=== PATIENT | male | born 1935 | race Caucasian/White ===

== ENCOUNTER 2017-01-12 03:36 | Inpatient (IN) | payer OTHER ==
[~2017-01-12] VITALS: Ht 167.6 cm; Wt 81.2 kg
[2017-01-12] VITALS (8 sets, daily range): BP systolic 105–146; BP diastolic 39–73
--- NOTE | ~2017-01-12 | EKG ---
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 : 1935 Requested By: Torsten Birch Order Number: [id number] MD: August Clarke Measurements Intervals [place] Rate: 158 P: DE: QRS: -30 QRSD: 95 T: 122 QT: 264 QTc: 428 Interpretive Statements Atrial fibrillation with rapid V-rate Left axis deviation Anteroseptal infarct, old Repolarization abnormality, prob rate related No previous ECG available for comparison Electronically Signed On 01-12-2017 11:02:40 CDT by August Clarke [email or web address] <ELECTRONICALLY SIGNED> By: August Clarke MD, [facility] 01/12/17 1102 [id number] [id number] August Clarke MD, [facility] /EPI
--- NOTE | ~2017-01-12 | 2DMMODE ---
[facility] [address] [place] [address] 2 D/M-MODE ECHOCARDIOGRAM Name: ELLIOTCECIL Room #: 361-P ADM IN .R.#: [id number] Admission: 01/12/17 Attend Phys: Cecil Canales, Discharge: Date of : 31 Date of Service: 01/13/17 1053 Report #: [id number] THIS REPORT FOR: //name// APPROVED REPORT Study performed: 01/13/2017 09:47:35 EXAM: Comprehensive 2D, Doppler, and color-flow Echocardiogram Patient Location: Bedside Room #: 361 Status: routine BSA: 1.89 HR: 78 bpm BP: 154/79 mmHg Other Information Study Quality: Adequate Indications Atrial Fibrillation 2D Dimensions RVDd: 32.33 mm LVEF(%): 55.33 (>50%) IVSd: 12.12 (7-11mm) LVOT Diam: 20.57 (18-24mm) LVDd: 40.79 mm PWd: 11.98 (7-11mm) Ascending Ao: 26.71 (22-36mm) LVDs: 29.20 (25-40mm) Aortic Root: 30.91 mm IVC: 20.00 mm Day's LVEF: 55.33 % Volumes Left Atrial Volume (Systole) Single Plane 4CH: 77.89 mL Single Plane 2CH: 52.12 mL LA ESV Index: 37.00 mL/m2 Aortic Valve AoV Peak Zack.: 2.37 m/s AO Peak Gr.: 22.44 mmHg LVOT Max P.81 mmHg AO Mean Gr.: 11.57 mmHg LVOT Mean P.48 mmHg AO V2 Mean: 1.56 m/s LVOT Max V: 1.10 m/s AO V2 VTI: 44.61 cm LVOT Mean V: 0.74 m/s TANYA (VTI): 1.79 cm2 LVOT V1 VTI: 24.10 cm TANYA Vmax: 1.54 cm2 AI Vmax: 3.13 m/s SV (LVOT): 80.05 mL AI Nelson: 1.86 m/s2 [facility] [place] [address] 2 D/M-MODE ECHOCARDIOGRAM Name: CECIL ZARATE Room #: 361-P [facility] IN .R.#: [id number] Admission: 01/12/17 Attend Phys: Cecil Canales, Discharge: Date of : 31 Date of Service: 01/13/17 1053 Report #: [id number] AI PHT: 488.41 ms Mitral Valve MV Peak Gr.: 11.72 mmHg MV Mean Gr.: 4.38 mmHg E/A Ratio: 2.2 MV Decel. Time: 217.64 ms MV E Max Zack.: 1.56 m/s MV A Zack.: 0.70 m/s MV Max Zack.: 1.71 m/s MV Mean Zack.: 0.94 m/s MV VTI: 422.87 mm MVA VTI: 189.29 mm2 MV PHT: 63.12 ms MVA (PHT): 3.09 cm2 IVRT: 64.59 ms Pulmonary Valve PV Peak Zack.: 1.02 m/s PV Peak Gr.: 4.20 mmHg Pulmonary Vein P Vein S: 0.65 m/s P Vein A: 0.36 m/s P Vein D: 0.79 m/s P Vein A Dur.: 110.7 msec P Vein S/D Ratio: 0.82 Tricuspid Valve TR Peak Zack.: 3.40 m/s TR Peak Gr.: 46.20 mmHg PA Pressure: 56.00 mmHg Left Ventricle The left ventricle is normal size. Hypokinesis of distal septum, apex, and inferoapex. Mild concentric left ventricular hypertrophy. Left ventricular ejection fraction is mildly decreased. LVEF 45%. The left ventricular diastolic function is abnormal. Right Ventricle The right ventricle is normal size. The right ventricular systolic function is normal. Atria Left atrium is dilated. The right atrium size is normal. Aortic Valve Aortic valve is calcified. Mild to moderate aortic regurgitation. Mild aortic stenosis. Calculated aortic valve area is 1.8 cm2 with maximum pressure gradient of 22 mmHg and mean pressure gradient of [address] [address] 2 D/M-MODE ECHOCARDIOGRAM Name: CECIL ZARATE Room #: 361-P ADM IN M.R.#: [id number] Admission: 01/12/17 Attend Phys: Cecil Canales, Discharge: Date of : 31 Date of Service: 01/13/17 1053 Report #: [id number]. Mitral Valve Mild mitral annular calcification. Mitral valve leaflets are calcified. Mild mitral regurgitation. Mild mitral stenosis. Calculated mitral valve area is 3.1 cm2 with maximum pressure gradient of 11 mmHg and mean pressure gradient of 4 mmHg. Tricuspid Valve The tricuspid valve is normal in structure. There is trace tricuspid regurgitation. The right atrial pressure is estimated at mmHg. There is moderate pulmonary hypertension. Estimated PAP 56 mmHg. Pulmonic Valve The pulmonary valve is normal in structure. Trace pulmonic regurgitation. Great Vessels The aortic root is normal in size. IVC is dilated and collapses >50% with inspiration. Pericardium There is no pericardial effusion. There is no pericardial effusion. <Conclusion> Left ventricular ejection fraction is mildly decreased. Hypokinesis of distal septum, apex, and inferoapex. LVEF 45%. Aortic valve is calcified. Mild aortic stenosis. Calculated aortic valve area is 1.8 cm2 with maximum pressure gradient of 22 mmHg and mean pressure gradient of 12 mmHg. Mild to moderate aortic regurgitation. Mild mitral annular calcification. Mitral valve leaflets are calcified; Mild mitral stenosis. Calculated mitral valve area is 3.1 cm2 with maximum pressure gradient of 11 mmHg and mean pressure gradient of 4 mmHg. There is trace tricuspid regurgitation. Pulmonary artery pressure estimated at 45mmHg There is moderate pulmonary hypertension. Estimated PAP 56 mmHg. <ELECTRONICALLY SIGNED> By: August Clarke MD, [facility] 01/13/17 1053 52 52 August Clarke MD, FACC /INF
--- NOTE | ~2017-01-12 | EKG ---
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 : 1935 Requested By: August Clarke Order Number: [id number] MD: August Clarke Measurements Intervals [place] Rate: 65 P: 27 MT: 122 QRS: -20 QRSD: 99 T: 18 QT: 429 QTc: 447 Interpretive Statements Sinus rhythm Probable left ventricular hypertrophy Poor R wave progression No previous ECG available for comparison Electronically Signed On 01-12-2017 11:08:02 CDT by August Clarke [email or web address] <ELECTRONICALLY SIGNED> By: August Clarke MD, [facility] 01/12/17 1108 1033 1033 August Clarke MD, [facility] /EPI
--- NOTE | ~2017-01-12 | HC ---
[facility] [place] [address] CONSULTATION Name: CECIL ZARATE Room #: 361-P ADM IN M.R.#: [id number] Admission: 01/12/17 Attend Phys: Cecil Canales DO Discharge: Date of : 31 Report #: [id number] THIS REPORT FOR: //name// CC: Cecil JAMES PCP DATE OF SERVICE: 01/12/2017 REASON FOR CONSULTATION: Atrial fibrillation. HISTORY OF PRESENT ILLNESS: The patient is an 81-year-old gentleman with a fairly limited past medical history. This morning around 3:00 a.m. he got up to use the bathroom; on his way back to bed he developed lightheadedness, shortness of breath and a midsternal chest pain. He reports that this felt as if food had got stuck in his esophagus. Pain persisted and paramedics were summoned. He was found to be in atrial fibrillation with a rapid ventricular response. He was seen in the Emergency Department where intravenous Cardizem was started and with rate control his symptoms abated and resolved. He has subsequently converted to sinus rhythm. He feels back to normal. There have been no heart failure symptoms including orthopnea or paroxysmal nocturnal dyspnea. His reports 2-3 months history of a nonproductive cough. No weight loss or systemic symptoms. He uses CPAP for sleep apnea. MEDICATIONS: Include Cymbalta 60 mg daily, morphine ER, aspirin 81 mg daily, omeprazole 20 mg daily, Flomax 0.4 mg daily, finasteride 5 mg daily, lidocaine patch. PAST MEDICAL HISTORY: Medical records have been reviewed and include a history of depression, prior history of duodenal ulcer, right rotator cuff injury, reflux disease, chronic low back pain, low vision, sleep apnea. SOCIAL HISTORY: He has never been a smoker. 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 . FAMILY HISTORY: Unremarkable for premature coronary artery disease. REVIEW OF SYSTEMS: All systems negative except as that noted above. PHYSICAL EXAMINATION: GENERAL: Reveals a pleasant gentleman, in no distress. VITAL SIGNS: Blood pressure is 116/53, heart rate is 76 and regular. He is afebrile. HEENT: There are neither xanthelasma, subcutaneous xanthomata, oral mucosal or digital cyanosis or kyphoscoliosis present. CHEST: Reveals diminished breath sounds at the right base. CARDIAC: Regular rate and rhythm with normal S1, S2. No murmurs or rubs. [facility] [address] [place] [address] CONSULTATION Name: CECIL ZARATE Room #: 361-P [facility] IN .R.#: [id number] Admission: 01/12/17 Attend Phys: Cecil Canales DO Discharge: Date of : 31 Report #: [id number] ABDOMEN: Soft and nontender. EXTREMITIES: Without cyanosis, clubbing or edema. Radial pulses are 2+. NEUROLOGIC: Alert with a nonfocal exam. LABORATORY DATA: Sodium 136, potassium 3.8, creatinine 0.7. Troponin 0, proBNP of 838. White count 6.6, hemoglobin 10, hematocrit 32, platelet count 279. TSH 1.137. EKG: Atrial fibrillation with nonspecific ST and T-wave abnormality. IMPRESSION: 1. Paroxysmal atrial fibrillation, now sinus rhythm. 2. Obstructive sleep apnea, on CPAP. 3. Right lung basilar infiltrate, currently under evaluation. 4. Anemia. 5. Hypercoagulable condition. RECOMMENDATIONS: 1. Change from IV to oral Cardizem. 2. Consider anticoagulant therapy in light of elevated CHADS-VASc score. 3. Echocardiogram with Doppler to exclude structural heart disease. 4. Given conversion of atrial fibrillation back to sinus rhythm, unless this recurs or is more symptomatic, I would not institute antiarrhythmic therapy at this point. I have discussed these issues with the patient and his family. Thank you for asking me to participate in his care. <ELECTRONICALLY SIGNED> By: August Clarke MD, [facility] 01/12/17 1755 1022 1221 August Clarke MD, FACC /nt
[2017-01-12 03:54] LABS: HEMATOCRIT 32.8 % (37.0-47.0); HEMOGLOBIN 10.4 gm/dL (12.0-15.0); MCH 21.9 pg (26.0-34.0); MCHC 31.5 g/dL (28.0-37.0); MCV 69.4 fL (80.0-100.0); RBC 4.73 mil/uL (4.20-5.00); RDW 17.8 % (10.5-14.5); WBC 6.6 thou/uL (4.0-11.0)
[2017-01-12 03:58] LABS: CALCIUM 8.3 mg/dL (8.5-10.1); CREATININE 0.7 mg/dL (0.6-1.0); POTASSIUM 3.8 mmol/L (3.5-5.1)
[2017-01-12 03:59] LABS: MAGNESIUM 2.1 mg/dL (1.8-2.4)
[2017-01-12] MEDS ORDERED: CYMBALTA60 MG PO (05:00)
[2017-01-12] MEDS ORDERED: MS CONTIN15 MG PO (05:00)
[2017-01-12] MEDS ORDERED: HYDROCODONE-ACE15 ML PO (05:01)
[2017-01-12] MEDS ORDERED: ASA81BEC PO (05:02)
[2017-01-12] MEDS ORDERED: OMEPRAZOLE 20 M20 M1 PO (05:03)
[2017-01-12] MEDS ORDERED: PRESERVISION L1 EACH PO (05:03)
[2017-01-12] MEDS ORDERED: PROSCAR 5MG TABL5 MG PO (05:04)
[2017-01-12] MEDS ORDERED: FLOMAX0.4 MG PO (05:04)
[2017-01-12] MEDS ORDERED: EX-LAX MAXIMUM25 MG PO (05:05)
[2017-01-12] MEDS ORDERED: ROBAXIN 750 MG750 M1 PO (05:06)
[2017-01-12] MEDS ORDERED: LIDOCAINE1 EACH TRANSDERM (05:07)
[2017-01-12 10:39] LABS: % SATURATION 5 % (20-39); IRON 20 ug/dL (65-175); TIBC 368 ug/dL (250-450); UIBC 348 ug/dL
[2017-01-13 04:09] VITALS: BP 144/65
[2017-01-13 05:22] LABS: ABSOLUTE NEUTROPHILS 4.5 thou/uL (1.4-8.2); BASOPHILS 0.7 % (0.0-2.0); EOSINOPHILS 3.8 % (0.0-3.0); HEMATOCRIT 30.1 % (42.0-52.0); HEMOGLOBIN 9.5 gm/dL (14.0-18.0); LYMPHOCYTES 25.5 % (24.0-44.0); MCH 21.9 pg (26.0-34.0); MCHC 31.6 g/dL (28.0-37.0); MCV 69.2 fL (80.0-100.0); PLATELET COUNT 258 thou/uL (150-400); RBC 4.35 mil/uL (4.50-6.00); RDW 17.7 % (10.5-14.5); WBC 7.3 thou/uL (4.0-11.0)
[2017-01-13 05:29] LABS: MANUAL DIFF NO
[2017-01-13 05:37] LABS: CALCIUM 8.2 mg/dL (8.5-10.1); CREATININE 0.7 mg/dL (0.7-1.3); POTASSIUM 3.7 mmol/L (3.5-5.1)
[2017-01-13 07:50] VITALS: BP 154/79
[2017-01-13 11:22] VITALS: BP 150/73
[2017-01-13] MEDS ORDERED: FERREX 150 PLU1 EAC1 PO (12:46)
[2017-01-13] MEDS ORDERED: CARDIZEM CD 18180 M3 PO (12:47)
[2017-01-13 13:05] VITALS: BP 150/73
== END 2017-01-13 15:15 | disposition home or self-care (01) | DRG 309 ==
LOC: ER 03:36 → EDSEX 03:36 → EROBS 04:39 → 3W 04:39 → ENTRNSPT 01-13 14:28 → EDTRNSPTSTS 01-13 14:31 → 3W 01-13 15:15
PROVIDERS: Emergency Medicine; Family Medicine; Internal Medicine
DX: I48.0 Paroxysmal atrial fibrillation (principal); D68.59 Other primary thrombophilia; F32.9 Major depressive disorder, single episode, unspecified; K21.9 Gastro-esophageal reflux disease without esophagitis; G89.29 Other chronic pain; M54.5 Low back pain; G47.33 Obstructive sleep apnea (adult) (pediatric); D64.9 Anemia, unspecified; N40.0 Benign prostatic hyperplasia without lower urinary tract symptoms; M19.90 Unspecified osteoarthritis, unspecified site; H35.30 Unspecified macular degeneration; H91.90 Unspecified hearing loss, unspecified ear; Z28.21 Immunization not carried out because of patient refusal
CPT/HCPCS: 10779